=== PATIENT | female | born 2000 ===

== ENCOUNTER 2021-02-24 03:01 | Inpatient (IN) ==
[2021-02-24] MEDS ORDERED: MEPERIDINE 50 MG/1 ML VIAL IV PRN (03:25)
[2021-02-24] MEDS ORDERED: BUTORPHANOL 2 MG/ML VIAL IV PRN (03:25)
[2021-02-24] MEDS ORDERED: ONDANSETRON 4 MG/2 ML VIAL IV PRN ×2 (03:25→09:12)
[2021-02-24] MEDS ORDERED: LACTATED RINGERS 1,000 ML IV SCH (03:30)
[2021-02-24] MEDS ORDERED: CITRIC ACID/SODIUM CITRATE 30 ML UDCUP PO ONE (03:44)
[2021-02-24] MEDS ORDERED: diphenhydrAMINE 50 MG/1 ML VIAL IV PRN ×2 (03:44)
[2021-02-24] MEDS ORDERED: NALOXONE 0.4 MG/ML VIAL IV PRN (03:44)
[2021-02-24] MEDS ORDERED: LACTATED RINGERS 1,000 ML IV PRN (03:44)
[2021-02-24] MEDS ORDERED: hydrOXYzine HCL 25 MG/1 ML VIAL IM PRN (03:44)
[2021-02-24] MEDS ORDERED: FAMOTIDINE 20 MG/2 ML VIAL IV ONE (03:44)
[2021-02-24] MEDS ORDERED: ePHEDrine 50 MG/ML VIAL IV PRN (03:44)
[2021-02-24] MEDS ORDERED: PROMETHAZINE 25 MG/1 ML VIAL IM ONE (03:44)
[2021-02-24] MEDS ORDERED: fentaNYL 2 MCG/ROPIV 0.2% EPID 100 ML EPIDURAL SCH (04:00)
[2021-02-24 04:03] LABS: Basophils % 0.2 % (0.0-0.8); Eosinophils % 0.3 % (0.00-10.9); Hematocrit 37.8 VOL% (35.7-47.0); Hemoglobin 12.7 GM/DL (12.0-16.0); Immature Granulocytes % 0.4 %; Immature Granulocytes Absolute 0.04 #; Lymphocytes # 1.4 10*3/uL (1.4-4.0); Mean Corpuscular HGB Conc 33.6 GM/DL (32-36); Mean Corpuscular Volume 92.9 FL (87-102); Mean Platelet Volume 9.7 FL (9.6-12.0); Monocytes % 7.7 % (1.7-12.7); Neutrophils % 77.4 % (38.7-73.9); Platelet Count 201 T/CUMM (130-400); Red Blood Count 4.07 MC/CUMM (3.8-5.5); Red Cell Distribution Width 15.5 % (9.3-17.3); White Blood Count 9.8 T/CUMM (4-12)
[2021-02-24 04:33] LABS: Alanine Aminotransferase 10 U/L (13-56); Albumin 2.9 G/DL (3.4-5.0); Alkaline Phosphatase 205 U/L (45-117); Aspartate Amino Transferase 15 U/L (0-37); Bilirubin,Total < 0.39 MG/DL (0.20-1.00); Blood Urea Nitrogen 13 MG/DL (7-18); Calcium 8.5 MG/DL (8.5-10.1); Carbon Dioxide 22 MMOL/L (21-32); Estimated Glom Filtration Rate 147 ML/MIN; Glucose 94 MG/DL (74-106); Potassium 3.8 MMOL/L (3.5-5.1); Sodium 136 MMOL/L (136-145); Total Protein 6.7 G/DL (6.4-8.2)
[2021-02-24] MEDS ORDERED: LABETALOL 100 MG TABLET ONE (07:04)
[2021-02-24] MEDS ORDERED: LABETALOL 100 MG TABLET PO SCH ×2 (07:04→18:00)
[2021-02-24] MEDS ORDERED: OXYTOCIN/LR 20 UNIT/1,000 ML BAG IV SCH (08:00)
[2021-02-24] MEDS ORDERED: miSOPROStoL 200 MCG TABLET ONE (08:56)
[2021-02-24] MEDS ORDERED: WITCH HAZEL PADS 100/JAR TOP PRN (09:12)
[2021-02-24] MEDS ORDERED: HYDROCORTISONE 2.5% RECTAL CREAM 30 GM TUBE TOP PRN (09:12)
[2021-02-24] MEDS ORDERED: DIPH/TET/ACEL PERT BOOSTER VACCINE 0.5 ML VIAL IM ONE (09:12)
[2021-02-24] MEDS ORDERED: BISACODYL 10 MG SUPP RECTAL PRN (09:12)
[2021-02-24] MEDS ORDERED: BENZOCAINE 20%/MENTHOL 0.5% SPRAY 56 GM CAN TOP PRN (09:12)
[2021-02-24] MEDS ORDERED: oxyCODONE/ACETAMINOPHEN 5-325 MG TABLET PO PRN ×2 (09:12)
[2021-02-24] MEDS ORDERED: MEASLES/MUMPS/RUBELLA VACCINE 0.5 ML VIAL SUBCUT ONE (09:12)
[2021-02-24] MEDS ORDERED: RHO(D) IMMUNE GLOBULIN 300 MCG SYRINGE IM ONE (09:12)
[2021-02-24] MEDS ORDERED: IBUPROFEN 800 MG TABLET PO PRN (09:12)
[2021-02-24] MEDS ORDERED: OXYTOCIN/LR 20 UNIT/1,000 ML BAG IV ONE (09:12)
[2021-02-24] MEDS ORDERED: ACETAMINOPHEN 325 MG TABLET PO PRN (09:12)
[2021-02-24] MEDS ORDERED: LANOLIN 50% CREAM 0.3 OZ TUBE TOP PRN (09:12)
[2021-02-24] MEDS: DOCUSATE SODIUM 100 MG CAPSULE PO SCH (21:27)
[2021-02-25] MEDS: LABETALOL 100 MG TABLET PO SCH ×3 (02:28→19:28)
[2021-02-25 05:55] LABS: Basophils % 0.3 % (0.0-0.8); Eosinophils # 0.1 10*3/uL (0.0-0.87); Hematocrit 32.1 VOL% (35.7-47.0); Hemoglobin 10.8 GM/DL (12.0-16.0); Immature Granulocytes % 0.4 %; Immature Granulocytes Absolute 0.03 #; Lymphocytes # 1.8 10*3/uL (1.4-4.0); Lymphocytes % 24.6 % (21.3-54.2); Mean Corpuscular HGB Conc 33.6 GM/DL (32-36); Mean Platelet Volume 9.7 FL (9.6-12.0); Monocytes % 6.9 % (1.7-12.7); Neutrophils % 66.8 % (38.7-73.9); Platelet Count 155 T/CUMM (130-400); Red Blood Count 3.45 MC/CUMM (3.8-5.5); Red Cell Distribution Width 15.9 % (9.3-17.3); White Blood Count 7.4 T/CUMM (4-12)
[2021-02-25 06:24] LABS: Eosinophils 1 % (0-10); Lymphocytes 18 % (20-55); Platelet Estimate Normal; Segmented Neutrophils 74 % (50-85); Total Cells Counted 100
[2021-02-25] MEDS: MULTIVITAMIN (PRENATAL) TABLET PO SCH (10:06)
[2021-02-25] MEDS: DOCUSATE SODIUM 100 MG CAPSULE PO SCH ×2 (10:06→21:03)
[2021-02-26] MEDS: LABETALOL 100 MG TABLET PO SCH ×2 (03:10→10:56)
[2021-02-26] MEDS: MULTIVITAMIN (PRENATAL) TABLET PO SCH (08:16)
[2021-02-26] MEDS: DOCUSATE SODIUM 100 MG CAPSULE PO SCH (08:16)
[2021-02-26 09:52] VITALS: BP 127/62
== END 2021-02-26 13:15 | disposition home or self-care (01) | DRG 560 ==
LOC: N.LDOUT 03:01 → N.LD 03:05 → N.OB 12:03
PROVIDERS: ADMIT Specialist; ATTEND Specialist